=== PATIENT | female | born 1955 | race Caucasian/White ===

== ENCOUNTER 2017-04-14 05:59 | Day surgery (SDC) | payer OTHER ==
--- NOTE | 2017-04-13 13:42 | PREOPHP ---
DATE OF ADMISSION: 04/14/2017 HISTORY OF PRESENT ILLNESS: This 61-year-old patient is admitted for elective excision of a pterygi um in the left eye which has been present for 1 year's time and has caused patient to have symptomat ic discomfort on an ongoing basis. The patient denies prior history of eye disease or injury. The patient is a noninsulin dependent diabetic, as well as having systemic hypertension and GERD. CURRENT MEDICATIONS INCLUDE: 1. Metformin. 2. Benazepril. 3. Lopressor. 4. Lipitor. 5. Zoloft. ALLERGIES: PENICILLIN. PHYSICAL EXAMINATION: The visual acuity is 20/50 in the right eye and 20/60 in the left eye. Slit lamp examination reveals nasal pterygium present in both eyes with the pterygium crossing the visual axis in the left eye. Applanation tonometry is 17 mmHg. Examination of the retina does not reveal the presence of any diabetic retinopathy. DIAGNOSIS: Visually significant pterygium, left eye. PLAN: Pterygium excision with mitomycin C application and rotating conjunctival graft, left eye. Belem gibbons risks and alternatives to the surgery have been discussed with the patient as well as the signifi cant risk of recurrence of pterygium. The patient understands this and agrees to proceed with surge ry in hopes of having improvement of visual acuity and reduction in symptoms of discomfort involving the pterygium. Dictated By: IMELDA JOHNSON/JAKUB Conf#: [id number] DID#: [id number]
[2017-04-14] MEDS ORDERED: MOXIFLOXACIN 0.5% 3 ML OPH OPER SCH (06:00)
[2017-04-14] MEDS ORDERED: SOD CHLORIDE 0.9% 1,000 ML IV SCH (06:00)
[2017-04-14] MEDS ORDERED: DICLOFENAC 0.1% 2.5 ML OPH OPER SCH (06:00)
[2017-04-14] MEDS ORDERED: CYCLOPENTOLATE/PHENYLEPH 2 ML OPH OPER SCH (06:00)
[2017-04-14] MEDS ORDERED: TROPICAMIDE 1% 2 ML OPH OPER SCH (06:00)
[2017-04-14] MEDS ORDERED: MITOMYCIN 5 MG INJ OP SCH (07:30)
== END 2017-04-14 06:30 | disposition home or self-care (01) ==
LOC: SDS 05:59
PROVIDERS: ATTEND Ophthalmology
DX: H11.002 Unspecified pterygium of left eye (principal); R05 Cough; R09.81 Nasal congestion; Z53.8 Procedure and treatment not carried out for other reasons
CPT/HCPCS: J9280

== ENCOUNTER 2017-06-09 08:13 | Day surgery (SDC) | payer OTHER ==
--- NOTE | 2017-06-08 12:48 | PREOPHP ---
DATE OF ADMISSION: 06/09/2017 HISTORY OF PRESENT ILLNESS: This 61-year-old patient is admitted for elective excision of a pterygi um of the left eye which has been present for 1 year and has caused the patient to have symptomatic discomfort as well as decreased vision. The patient denies prior history of eye disease or injury. The patient is a noninsulin-dependent diabetic and is being treated for systemic hypertension and G ERD. CURRENT MEDICATIONS INCLUDE: 1. Metformin. 2. Benazepril. 3. Lopressor. 4. Lipitor. 5. Zoloft. ALLERGIES: THE PATIENT IS ALLERGIC TO PENICILLIN. PHYSICAL EXAMINATION: The visual acuity without correction is 20/50 in the right eye and 20/60 in t he left eye. Slit lamp examination reveals a nasal pterygium present in both eyes with the pterygiu m in the left eye crossing into the visual axis. Applanation tonometry is 17 mmHg in both eyes. Exa mination of the retina does not reveal the presence of diabetic retinopathy. DIAGNOSIS: Visually significant pterygium, left eye. PLAN: Pterygium excision with mitomycin C application and rotating conjunctival graft, left eye. T he risks and alternatives to the surgery have been discussed with the patient as well as the signifi cant risk of recurrence of pterygium. The patient understands this and agrees to proceed with surge ry for improved visual acuity and greater level of ocular. Dictated By: IMELDA JOHNSON/JAKUB Conf#: [id number] DID#: [id number]
[~2017-06-09] VITALS: Ht 134.6 cm; Wt 55.1 kg
[2017-06-09] VITALS (8 sets, daily range): BP systolic 117–159; BP diastolic 60–78; PULSE 72–82; RESP 16–71; Ht 134.6 cm; Wt 55.1 kg
[~2017-06-09 08:13] MED LIST: BROMFENAC SODIUM 1.7 ML OPH DROP LEFT EYE SCH; CYCLOPENTOLATE/PHENYLEPH 2 ML OPH LEFT EYE SCH; MITOMYCIN 5 MG INJ OP SCH; MOXIFLOXACIN 0.5% 3 ML OPH LEFT EYE SCH; SOD CHLORIDE 0.9% 1,000 ML IV SCH; TROPICAMIDE 1% 3 ML OPH LEFT EYE SCH
[2017-06-09] MEDS ORDERED: ASPI-664 PO (09:01)
[2017-06-09] MEDS ORDERED: FLUT16SP17 NASAL (09:02)
[2017-06-09] MEDS ORDERED: GEMF600T PO (09:02)
[2017-06-09] MEDS ORDERED: GLIP5TAB13 PO (09:02)
[2017-06-09] MEDS ORDERED: LORA-186 PO (09:03)
[2017-06-09] MEDS ORDERED: OMEP20CA16 PO (09:03)
[2017-06-09] MEDS ORDERED: BUPIVACAINE 0.5% (SDV) 30 ML INJ ONE (09:18)
[2017-06-09] MEDS ORDERED: LIDOCAINE 1%/EPI 30 ML INJ ONE (09:18)
[2017-06-09] MEDS ORDERED: TOBRAMYCIN/DEXAMETH 3.5 GM OPH OINT ONE (09:18)
[2017-06-09] MEDS ORDERED: MITOMYCIN 5 MG INJ LEFT EYE ONE (10:30)
[2017-06-09] MEDS ORDERED: ACETAMINOPHEN 325 MG TAB PO ONE (11:00)
[2017-06-09] MEDS ORDERED: BUPIVACAINE 0.5% (SDV) 30 ML INJ INJ ONE (11:03)
[2017-06-09] MEDS ORDERED: LIDOCAINE 1% (MPF) 30 ML INJ INJ ONE (11:03)
[2017-06-09] MEDS ORDERED: TOBRAMYCIN/DEXAMETH 3.5 GM OPH OINT LEFT EYE ONE (11:05)
--- NOTE | 2017-06-09 12:13 | OPR ---
DATE OF OPERATION: 06/09/2017 PREOPERATIVE DIAGNOSIS: Pterygium, left eye. POSTOPERATIVE DIAGNOSIS: Pterygium, left eye. OPERATION PERFORMED: Pterygium excision with mitomycin C application and a rotating conjunctival gr aft, left eye. SURGEON: Imelda Johnson MD ANESTHESIA: Rachel Damon CRNA DESCRIPTION OF PROCEDURE: Patient brought to the operating room on an eye gurney, positioned approp riately and then prepped and draped in the usual sterile manner. Following this, a speculum was ins erted between the lids of the left eye and then after some intravenous sedation was administered, th e patient received local anesthesia using lidocaine 4% given in subconjunctival injection beneath th e bed of the pterygium. Following this, using Mirtha scissors, the bed of the pterygium was separ ated from adjacent conjunctiva and then the subconjunctival tissue was dissected to the corneosclera l limbus. Using a curved blade, the head of the pterygium was then dissected off the surface of the cornea to the central zone of the cornea. After this had been done, hemostasis was obtained by adama ns of cautery to the limbal area and then using a iva tipped bur, the corneal bed was polished u ntil a smooth surface was present. When this was completed, a Weck-Kaylan sponge impregnated with christopher mycin C was placed on the bare sclera adjacent to the area that the pterygium was removed. This was left in place for 1 minute and then copious irrigation was performed with balanced salt solution. A rotating conjunctival graft was created from the superior limbal conjunctiva by doing a peritomy i ncision from the conjunctival opening to the superotemporal quadrant, and then creating a tongue-lik e flap to rotate into place. Three 6-0 Vicryl sutures were placed and tied in an interrupted fashio n. The ends were cut short. It was noted that the bare sclera appeared to be completely covered by the conjunctival flap. The speculum was removed, TobraDex ointment was placed on the surface of th e eye and the eye received a pressure patched. The patient then left the operating room in satisfac tory condition. Dictated By: IMELDA JOHNSON/JAKUB Conf#: [id number] [facility]#: [id number]
--- NOTE | 2017-06-09 12:14 | SIPON ---
Date/Time of Note Date/Time of Note DATE: 06/09/17 TIME: 12:13 Operative Report Preoperative Diagnosis pterygium os Postoperative Diagnosis same Operation/Procedure Performed ptergium excision with graft Surgeon see signature line neurosurgical physician assistant none Anesthesia: MAC Estimated blood loss: none Transfusion Required none Specimen none Grafts/Implants none Complications none IMELDA MCKENNA MD Jun 09, 2017 12:14
== END 2017-06-09 14:10 | disposition home or self-care (01) ==
LOC: SDS 08:13
PROVIDERS: ATTEND Ophthalmology
DX: H11.002 Unspecified pterygium of left eye (principal); I10 Essential (primary) hypertension; E78.5 Hyperlipidemia, unspecified; E11.9 Type 2 diabetes mellitus without complications
CPT/HCPCS: 65426; 82962; J9280; Z7512; Z7610

== ENCOUNTER 2017-11-10 08:32 | Day surgery (SDC) | END 2017-11-10 15:36 | disposition home or self-care (01) ==